=== PATIENT | male | born 1970 | race Caucasian/White ===

== ENCOUNTER 2020-09-04 07:07 | Inpatient (IN) | payer BC ==
[~2020-09-04] VITALS: Ht 167.6 cm; Wt 93.1 kg
[2020-09-04] MEDS ORDERED: ZITHROMAX Z PA250 MG PO (07:57)
[2020-09-04] MEDS ORDERED: 00186-0370-20 IH (07:58)
[2020-09-04 08:26] LABS: BASO # 0.1 (0.0-0.2); BASO % 0.6 % (0.0-2.0); EOS # 0.1 (0.0-0.7); EOS % 0.8 % (0-4.0); GRAN # 5.4 (1.4-6.5); HEMATOCRIT 45.9 % (42.0-52.0); HEMOGLOBIN 15.8 g/dl (13.5-18.0); LYMPH # 1.7 (1.2-3.4); LYMPH % 22.2 % (20.0-51.0); MEAN CELL VOLUME 87 fl (80.0-100.0); MEAN CORPUSCULAR HEMOGLOBIN 30 pg (27.0-31.0); MEAN CORPUSCULAR HGB CONC 34 g/dl (33.0-37.0); MEAN PLATELET VOLUME 8.7 fl (7.4-10.4); MONO # 0.5 (0.1-0.6); MONO % 6.1 % (1.7-9.3); PLATELET COUNT 331 K/mm3 (130-400); RED BLOOD COUNT 5.28 M/mm3 (4.20-5.60); REDCELL DISTRIBUTION WIDTH-CV 12.6 % (11.5-14.5)
[2020-09-04 08:28] LABS: ALANINE AMINOTRANSFERASE 216 U/L (4-49); ALBUMIN 4.4 gm/dL (3.5-5.0); ALKALINE PHOSPHATASE 60 U/L (50-136); ANION GAP 8 mmol/L (7-16); AST,SGOT 149 U/L (15-37); BILIRUBIN,TOTAL 0.8 mg/dL (0.0-1.0); BLOOD UREA NITROGEN 18 mg/dL (9-20); CALCIUM 9.1 mg/dL (8.4-10.2); CARBON DIOXIDE 22 mmol/L (22-30); CHLORIDE 105 mmol/L (98-107); GLUCOSE 124 mg/dL (74-106); POTASSIUM 3.9 mmol/L (3.4-5.0); SODIUM 135 mmol/L (137-145); TOTAL PROTEIN 6.7 gm/dL (6.4-8.2)
[2020-09-04 08:34] LABS: INR 1.2 (0.8-3.0)
[2020-09-04 08:37] LABS: PARTIAL THROMBOPLASTIN TIME 34.8 SECONDS (26.0-37.0)
[2020-09-04 08:39] LABS: TROPONIN-I < 0.012 ng/mL (0.000-0.035)
[2020-09-04 08:48] LABS: MAGNESIUM 1.9 mg/dL (1.6-2.3)
[2020-09-04 09:20] LABS: TSH w REFLEX 1.73 uIU/mL (0.465-4.680)
[2020-09-04 16:30] VITALS: BP 128/80; PULSE 84; TEMP 97.7
[2020-09-04 17:19] VITALS: BP 128/80; PULSE 84; TEMP 97.7
--- NOTE | 2020-09-04 17:39 | NUR ---
Patient transferred from ICU via wheelchair to room 315 this afternoon. Patient sitting up in the chair. Alert and oriented x4. Patient c/o chest discomfort and pressure. Breathing even and unlabored. VS and assessment completed and charted. Apical HR 84 and SPO2 98% on RA while at rest. No N/V or dizziness noted. Skin intact. 20G IV to left AC area has no s/s of complications. Patient ambulating to the bathroom independently. Sitting up and having dinner at this time. Call light within reach. No further need reported.
[2020-09-04 18:02] VITALS: BP 144/73; PULSE 115; TEMP 97.4
--- NOTE | 2020-09-04 18:04 | NUR ---
Patient c/o abdominal pain throughout the shift. PRN Dilaudid Ativan given Q 2-3 hrs per patient request. Alcohol detox protocol followed and charted assessment throughout the shift. Patient ate 100% of clear liquid dinner. Will given report to poultry inseminator RN.
--- NOTE | 2020-09-04 18:46 | NUR ---
Patient was getting very anxious and tearful about hospitalization. HR 115. PRN Ativan 1ml given per alcohol detox protocol. Will give report to night coordinator RN.
--- NOTE | 2020-09-04 19:10 | NUR ---
Received report from Sho. Patient is asleep. Will check on him again.
[2020-09-04 19:30] VITALS: BP 101/73; PULSE 94; TEMP 98
[2020-09-04 21:59] VITALS: BP 109/92; PULSE 93; TEMP 98.6
--- NOTE | 2020-09-04 22:25 | NUR ---
Prepared consent for the procedure. This nurse asked the patient if the procedure was explained to him and he said that they did. Explained further to patient what to expect post op. Patient signed the consent.
[2020-09-05] VITALS (20 sets, daily range): BP systolic 113–140; BP diastolic 75–101; PULSE 77–112; TEMP 97.5–98.7
--- NOTE | 2020-09-05 00:20 | NUR ---
Ativan 1mg given per dr order for detox score of 4 for HR and anxiety.
--- NOTE | 2020-09-05 04:51 | NUR ---
There is more than 5% variance in patient's weight. Verified to patient what is his usual weight and he said that he was usually 215lbs. He knew he gained weight due to retained fluids. His current weight now was 220lbs.
[2020-09-05 06:21] LABS: HEMATOCRIT 41.4 % (42.0-52.0); HEMOGLOBIN 13.9 g/dl (13.5-18.0); MEAN CELL VOLUME 89 fl (80.0-100.0); MEAN CORPUSCULAR HEMOGLOBIN 30 pg (27.0-31.0); MEAN CORPUSCULAR HGB CONC 34 g/dl (33.0-37.0); MEAN PLATELET VOLUME 8.8 fl (7.4-10.4); PLATELET COUNT 272 K/mm3 (130-400); RED BLOOD COUNT 4.67 M/mm3 (4.20-5.60); REDCELL DISTRIBUTION WIDTH-CV 12.6 % (11.5-14.5)
--- NOTE | 2020-09-05 06:33 | NUR ---
Patient becoming anxious this morning since his procedure is coming up. Ativan was given awhile ago. He denies pain. Maintained on NPO.
[2020-09-05 06:34] LABS: INR 1.3 (0.8-3.0); PROTHROMBIN TIME 14.2 SECONDS (9.7-12.8)
[2020-09-05 06:37] LABS: PARTIAL THROMBOPLASTIN TIME 33.4 SECONDS (26.0-37.0)
[2020-09-05 06:43] LABS: CALCIUM 8.2 mg/dL (8.4-10.2); CREATININE, serum 1.04 (0.66-1.25); POTASSIUM 3.4 mmol/L (3.4-5.0)
--- NOTE | 2020-09-05 07:38 | NUR ---
Radha RN notified of patient's increased HR.
--- NOTE | 2020-09-05 08:05 | NUR ---
SEE MERGE DOCUMENTATION FOR MEDICATION ADMINISTRATION TIMES AND INTRA/POST PROCEDURE SEDATION.
--- NOTE | 2020-09-05 08:10 | NUR ---
Sho RN notified of patient's telemety leads being off. Nurse states PT is at dialysis.
--- NOTE | 2020-09-05 11:55 | NUR ---
Patient resting in bed appears comfortable and not in acute distress upon enter. Patient alert and oriented. C/o some moderate pressure to his chest area. 1/2NS IV started to left forearm prior to procedure. Cardiac oil field laborer staff transferred patient via bed to Cardiac oil field laborer for procedure.
--- NOTE | 2020-09-05 12:45 | NUR ---
Initial visit; Patient thanked Diamond Picker for looking in on him, offering God's blessings and keeping him in Diamond Picker's prayers.
--- NOTE | 2020-09-05 12:56 | NUR ---
Patient transferred to room 315 at 0850 am after cardiac catheterization. Patient drowsy but arousable. Right wrist incision site clean/dry/intact with pressure band on. Report received from Cardiac laboratory tech staff
--- NOTE | 2020-09-05 15:38 | NUR ---
Patient resting in bed with no acute distress. No c/o pain or discomfort to right wrist cardiac cath site. Cardiac cath site clean/dry/intact. Attemped to remove 5cc air at 1100 am. Notived bleeding to the incision site. 5cc air pushed back to the pressure band. Removed 5cc air at 11:40 am. No bleeding noted. Removed another 5cc air at 12:30 pm. No bleeding noted. Removed remaining 2cc air at 1300. No bleeding noted. Covered cardiac cath site with band aid. Will continue to monitor post-procedure complications.
--- NOTE | 2020-09-05 15:43 | NUR ---
Xray Tech met with patient to discuss discharge planning. Patient is tearful during intake and stated that he is having a difficult time being in the hospital, away from home. Patient lives in [place] with is , Marbella (ph#[phone]) and their two children. Patient is employed at [employer] and sees Dr. Choi for primary care. Patient obtains medications from [facility] with no difficulties. Patient does not use DME and reports independence with ADLS. Patient does not have Advance Directives at this time. Patient plans on returning home upon discharge. ROQUE contacted patient's , Marbella to review discharge plan. Marbella states patient has been anxious and does not like being in the hospital. Marbella advised she has no concerns about patient returning home at this time.
--- NOTE | 2020-09-05 17:46 | NUR ---
Patient appears anxious at this time. PRN Ativan 1mg via IV given for alcohol detox level of 5 at 1730pm. Potassium protocol started per MD order and first dose given at 1730pm. Call light within reach. Patient denies further needs at this time.
--- NOTE | 2020-09-05 19:15 | NUR ---
Report received, assumed care for national expansion recruiter. Assessment complete. A&Ox3. Noted to be tachycardic with HR running 110s-120s. Tele showing tachycardia-A fib. HepXa 0.59-no change to current heparin rate of 18mls/hr. Denies pain/chest pain/shortness of breath/nausea. Plan of care discussed for this shift to [facility] meds/lab draws/NPO at midnight for cardioversion in AM/calling for questions/concerns. Verbalizes understanding. Call light in reach. Will monitor.
--- NOTE | 2020-09-05 19:35 | NUR ---
Call from telephone coin box collector reporting high rate alarm going off. Patient is up to bathroom at this time. Denies chest pain/shortness of breath. Does state he feels very anxious at this time. Detox protocol score of 5. Will administer Ativan per dr order and re-assess.
--- NOTE | 2020-09-05 19:50 | NUR ---
Ativan 1mg given for detox score of 5 due to HR, anxiety and tremor.
--- NOTE | 2020-09-05 21:10 | NUR ---
Notified by telesales supervisor of high rate alarm sounding. This nurse was in patients room at 210 to administer scheduled meds-had been asleep. Denies chest pain/shortness of breath. States he got up to drink his OJ/Potassium. Call light in reach. Will monitor.
--- NOTE | 2020-09-05 21:42 | NUR ---
Received call from telephone maintainer-high rate alarm sounding. Noted to be 140s on monitor. This nurse to room-patient in bathroom again. Denies chest pain/nausea/shortness of breath. Instructed to call when back to bed so vitals can be taken. Verbalizes understanding. Will monitor.
--- NOTE | 2020-09-05 22:00 | NUR ---
Back in bed at this time. Vital signs- BP122/85, HR 112 apically, TEMP 97.5 orally with O2 sat 96% on room air. Denies chest pain/shortness of breath/nausea. Scoring 3 on detox protocol. States anxiety is currently under control. Instructed to call with questions/concerns. Verbalizes understanding. Will continue to monitor.
[2020-09-06] VITALS (15 sets, daily range): BP systolic 101–121; BP diastolic 65–95; PULSE 37–118; TEMP 97.4–98.3
--- NOTE | 2020-09-06 00:59 | NUR ---
Lab notified of need for HepXa.
--- NOTE | 2020-09-06 05:51 | NUR ---
Rested well later this shift. Has been NPO since midnight for NICOLAS. Denied pain/nausea/shortness of breath. Remained in afib all thi shift. Heparin currently infusing at 17ml/hr-1700units/hour. Discussed needing consent form signed this AM for procedure-states he wants to speak with cardiology before signing to have a few questions answered due to foregetting exactly what would happen due to anxiety. Consent is on front of chart when ready to sign. Denies questions/concerns at this time. Call light in reach. Will monitor.
[2020-09-06 06:30] LABS: BASO # 0.1 (0.0-0.2); BASO % 0.7 % (0.0-2.0); EOS # 0.2 (0.0-0.7); EOS % 2.1 % (0-4.0); GRAN % 53.2 % (42.2-75.2); HEMATOCRIT 45.9 % (42.0-52.0); HEMOGLOBIN 15.7 g/dl (13.5-18.0); LYMPH # 2.7 (1.2-3.4); LYMPH % 35.4 % (20.0-51.0); MEAN CELL VOLUME 88 fl (80.0-100.0); MEAN CORPUSCULAR HEMOGLOBIN 30 pg (27.0-31.0); MEAN CORPUSCULAR HGB CONC 34 g/dl (33.0-37.0); MEAN PLATELET VOLUME 8.9 fl (7.4-10.4); MONO # 0.6 (0.1-0.6); MONO % 8.5 % (1.7-9.3); PLATELET COUNT 295 K/mm3 (130-400); RED BLOOD COUNT 5.23 M/mm3 (4.20-5.60); REDCELL DISTRIBUTION WIDTH-CV 12.6 % (11.5-14.5)
--- NOTE | 2020-09-06 06:30 | NUR ---
Call from local telephone operator stating HR setting off HR alarm. Noted to have HR of 120s. Is up to bathroom at this time to void. Denies pain/nausea/shortness of breath. Denies needs. Call light in reach. Will monitor.
[2020-09-06 06:34] LABS: INR 1.3 (0.8-3.0); PROTHROMBIN TIME 14.5 SECONDS (9.7-12.8)
[2020-09-06 06:43] LABS: ALBUMIN 3.9 gm/dL (3.5-5.0); BILIRUBIN UNCONJUGATED 0.7 mg/dL (0.0-1.1); BILIRUBIN,TOTAL 0.7 mg/dL (0.0-1.0); CALCIUM 8.3 mg/dL (8.4-10.2); CREATININE, serum 0.83 (0.66-1.25); POTASSIUM 3.6 mmol/L (3.4-5.0); TOTAL PROTEIN 6.4 gm/dL (6.4-8.2)
--- NOTE | 2020-09-06 07:14 | NUR ---
Patient up to bathroom, voids and has small BM, returns to bed. Alert and oriented x4. Denies pain. Is aware of procedure today, still has questions that he wants to talk to the provider about before signing consent. Heart rate irregular and gets tachy with increased activity. Heparin drip at 17mL/hr. Patient denies additional needs or concerns at this time.
--- NOTE | 2020-09-06 08:35 | NUR ---
HepXa elevated. Infusion stopped at this time, will need to restart in one hour. Rate will decrease to 15mL/hr, pump set at this time, confirmed by MELLO Witt. Order for lab redraw at 1430 today. Patient updated. Patient lying in bed. Denies needs or concerns at this time.
--- NOTE | 2020-09-06 09:11 | NUR ---
Patient to mobile home laborer at this time via bed. MELLO Reed, updated on when to restart Heparin drip.
--- NOTE | 2020-09-06 10:18 | NUR ---
Patient back to room via bed from procedure. Alert and oriented x4, groggy. Patient expresses frustration with the failed cardioversion. Dr. Shaw in to talk with the patient about plan.
--- NOTE | 2020-09-06 10:40 | NUR ---
Initial amiodarone dose given. RT notified so they can perform EKG in four hours.
--- NOTE | 2020-09-06 12:27 | NUR ---
Patient starting to get increased anxiety. Will administer Ativan as prescribed. Reassurance provided to the patient. Patient is frustrated with having to be in hospital longer. Discuss this further with the patient.
--- NOTE | 2020-09-06 13:50 | NUR ---
Sitting on edge of bed eating lunch. Heparin drip discontinued at this time as ordered. Initial dose of Eliquis given at this time. Patient joking around and laughing, feeling a little better at this time. Denies additional needs.
--- NOTE | 2020-09-06 13:58 | NUR ---
Receive call from tele that the patient's heart rate has been staying steady around 130's, has jumped up to 170's a couple times. Go in to check on patient. Patient sitting on edge of bed eating lunch still. Patient says that he feels fine. Denies feeling short of breath or any chest pain. Says that he feels that fine. MELLO Bryant with Dr. English, updated. No new orders received at this time.
--- NOTE | 2020-09-06 14:03 | NUR ---
MELLO Bryant, calls back and she and Dr. Tameka alva placed orders in system. Will administer Toprol as prescribed at this time.
--- NOTE | 2020-09-06 14:41 | NUR ---
Mutual Fund Manager spoke with patient's , Marbella who asked if she could bring in a laptop for patient to watch Netflix on. SW advised that belongings could be brought to either the ED or Patient Entrance. Marbella did not have any further questions or concerns at this time.
--- NOTE | 2020-09-06 14:55 | NUR ---
Per tele, heart rate 90's-110's.
--- NOTE | 2020-09-06 17:09 | NUR ---
Patient lying in bed with eyes open. Says taht he is feeling okay at this time. Patient feeling better about staying and realizes importance of situation. Explains that he know that there are some changes in his life that he needs to make to help the situation in the long run. Patient's dropped off some stuff at patient admission entrance for the patient. This nurse obtains bag from patient admissions and provides to the patient. Patient denies any additional needs at this time.
--- NOTE | 2020-09-06 21:15 | NUR ---
Resting in bed. Assessment complete. Lungs clear. Heart sounds normal. Bowels active x4. Pulses present throughout. No edema noted. INT left AC flushed without complications. Patient scoring 2 on detox scale. Ativan ordered starting at 4. Patient report anxiety and ready to leave facility. Spoke with Myrna TURNER. One time dose for Ativan 0.5mg ordered and will provide to patient. Denied pain at this time. Call light in reach.
[2020-09-07] VITALS (8 sets, daily range): BP systolic 97–139; BP diastolic 71–96; PULSE 60–96; TEMP 97.3–98.2
--- NOTE | 2020-09-07 03:56 | NUR ---
Resting in bed. Denies needs. Call light in reach.
--- NOTE | 2020-09-07 06:31 | NUR ---
Patient required x1 dose of ativan throughout night. Otherwise uneventful night. Resting in bed this AM. Call light in reach.
[2020-09-07 06:49] LABS: BILIRUBIN,TOTAL 0.8 mg/dL (0.0-1.0); CREATININE, serum 1.07 (0.66-1.25); TOTAL PROTEIN 6.7 gm/dL (6.4-8.2)
--- NOTE | 2020-09-07 07:17 | NUR ---
Report given to MELLO Macias
--- NOTE | 2020-09-07 08:59 | NUR ---
Pt awake and alert upon entry, sitting on side of bed, talkative, shift assessments complete, left Pt sitting with call light in reach.
--- NOTE | 2020-09-07 10:48 | NUR ---
Tierce Filler attended clinical rounds with the team. Patient states he is still feeling down about being in the hospital. Patient states once he can get out of the hospital, he will feel much better. Patient encouraged to walk in the hallways. SW will continue to follow.
--- NOTE | 2020-09-07 17:48 | NUR ---
Pt resting in the room during the day, has not had C/O pain today. Pt has indicated that he is anxious at times during the day, and has expressed a desire to return home, medications were given for relief. no other issues noted. VS have remained stable.
--- NOTE | 2020-09-07 20:45 | NUR ---
Resting in bed. Assessment complete. Lungs clear. Heart sounds normal. bowels active x4. Pulses present throughout. No edema noted. INT left AC without complications. Denies pain. Denies needs at this time. Call light in reach.
--- NOTE | 2020-09-08 01:00 | NUR ---
Resting in bed. Denies needs. Call light in reach.
[2020-09-08 02:02] VITALS: BP 108/74; PULSE 74; TEMP 97.8
[2020-09-08 04:17] VITALS: BP 103/67; PULSE 63; TEMP 98.3
--- NOTE | 2020-09-08 06:26 | NUR ---
Patient had uneventful night. Resting in bed this AM. Call light in reach.
[2020-09-08 06:32] VITALS: BP 93/62; PULSE 60; TEMP 97.4
--- NOTE | 2020-09-08 06:55 | NUR ---
Report given to MELLO Macias
--- NOTE | 2020-09-08 09:15 | NUR ---
Pt awake and alert upon entry, walking in room, no C/O pain at this time, shift assessments complete, left Pt call light in reach, bed in lowest position.
[2020-09-08 10:18] VITALS: BP 99/82; PULSE 58; TEMP 97.6
--- NOTE | 2020-09-08 10:44 | NUR ---
Verbal order to change CIWA from Q2H to Q4H from Shamika Dale.
[2020-09-08 19:28] VITALS: BP 106/64; PULSE 86; TEMP 97.5
--- NOTE | 2020-09-08 19:45 | NUR ---
Resting in bed. Assessment complete and within normal limits. INT left AC flushed without complications. Denies pain. Reporting anxiety and "home sick." Requested PRN xanax. Provided to patient. Denies other needs at this time. Call light in reach.
[2020-09-08 22:24] VITALS: BP 120/76; PULSE 80; TEMP 97.4
[2020-09-09] VITALS (8 sets, daily range): BP systolic 100–114; BP diastolic 50–93; PULSE 55–80; TEMP 97.4–98.3
--- NOTE | 2020-09-09 00:07 | NUR ---
Resting in bed. Denies needs. Call light in reach.
--- NOTE | 2020-09-09 04:15 | NUR ---
Resting in bed. Denies needs. Call light in reach.
--- NOTE | 2020-09-09 05:08 | NUR ---
Patient received x1 dose of xanax for anxiety. Otherwise uneventful night. Resting in bed this AM. Call light in reach.
[2020-09-09 06:17] LABS: ALBUMIN 3.8 gm/dL (3.5-5.0); BILIRUBIN,TOTAL 0.7 mg/dL (0.0-1.0); CALCIUM 8.9 mg/dL (8.4-10.2); CREATININE, serum 1.11 (0.66-1.25); MAGNESIUM 2.1 mg/dL (1.6-2.3); TOTAL PROTEIN 6.6 gm/dL (6.4-8.2)
--- NOTE | 2020-09-09 06:39 | NUR ---
Report given to MELLO Macias
--- NOTE | 2020-09-09 10:21 | NUR ---
Pt awake and alert upon entry this morning, sitting at windowside bench, talkative, no C/O pain at this time. Shift assessments complete, left Pt call light in reach, bed in lowest position.
--- NOTE | 2020-09-09 18:21 | NUR ---
Pt resting in the room, has some C/O anxiety at times during the day, no other issues noted. VS have remained stable.
--- NOTE | 2020-09-09 20:00 | NUR ---
Report recieved, assuemd care for shift production supervisor. Assessment complete. VS stable-hypotensive. Denies chest pain/shortness of breath/nausea. States she is ready for his cardioversion tomorrow so he can go home. Plan of care discussed for this shift to include HS meds/Fluid restriction/NPO at midnight. Verbalizes understanding/denies questions/concerns. Call light in reach. Will monitor.
[2020-09-10] VITALS (8 sets, daily range): BP systolic 98–110; BP diastolic 64–77; PULSE 72–80; TEMP 97.4–98
--- NOTE | 2020-09-10 05:56 | NUR ---
Rested well this shift with no c/o. Remained NPO since midnight. Not scoring on ETOH withdrawl. Recieved one dose of xanax at HS for anxiousness related to possible cardioversion today. Denies pain/nausea/shortness of breath. VS stable. Call light in reach. WIll monitor.
--- NOTE | 2020-09-10 07:00 | NUR ---
Report with MELLO Lane. Pt sitting up in bed, talking on phone, denies needs. Call light in reach.
[2020-09-10 07:17] LABS: BILIRUBIN,TOTAL 0.7 mg/dL (0.0-1.0); CALCIUM 8.9 mg/dL (8.4-10.2); CREATININE, serum 1.11 (0.66-1.25); POTASSIUM 4.1 mmol/L (3.4-5.0); TOTAL PROTEIN 6.6 gm/dL (6.4-8.2)
--- NOTE | 2020-09-10 09:00 | NUR ---
Assessment complete. Pt ambulating around room with steady gait, A&O x 4. Physical assessment unremarkable. Pt denies pain at this time. Saline lock IV to left AC without s/s of complications. POC for procedure reviewed with pt. No further needs reported. Call light in reach.
--- NOTE | 2020-09-10 09:55 | NUR ---
Pt to flue dust laborer for procedure via bed.
--- NOTE | 2020-09-10 10:50 | NUR ---
Pt back to room from slab conditioner supervisor following procedure via bed, A&O x 4. Pt denies pain at this time. VSS. No further needs reported. Call light in reach.
[2020-09-10] MEDS ORDERED: ELIQUIS 5MG PO (12:50)
[2020-09-10] MEDS ORDERED: PACERONE400 MG PO (12:51)
[2020-09-10] MEDS ORDERED: ALDACTONE 25MG25 M1 PO (12:52)
[2020-09-10] MEDS ORDERED: TOPROL XL 25MG25 MG PO (12:52)
[2020-09-10] MEDS ORDERED: ENTRESTO 24 MG1 EACH PO (12:52)
[2020-09-10] MEDS ORDERED: LASIX 40MG TABL40 MG PO (12:52)
--- NOTE | 2020-09-10 15:44 | NUR ---
Amiodarone script called to [facility] for 2 days worth d/t Conchita needing to order more medication to fulfill prescription. 2 tabs sent home with pt to cover dose for this evening.
== END 2020-09-10 15:46 | disposition home or self-care (01) | DRG 286 ==
LOC: COL.ER 07:07 → MEDICAL 11:17
PROVIDERS: Family Medicine; Hospitalist; Physician Assistant; ADMIT Internal Medicine
PROC: 4A023N7 Measurement of Cardiac Sampling and Pressure, Left Heart, Percutaneous Approach (ICD-10-PCS; principal; 2020-09-05)
PROC: B2111ZZ Fluoroscopy of Multiple Coronary Arteries using Low Osmolar Contrast (ICD-10-PCS; 2020-09-05)
PROC: 5A2204Z Restoration of Cardiac Rhythm, Single (ICD-10-PCS; 2020-09-06)
DX: I48.91 Unspecified atrial fibrillation (principal); I50.23 Acute on chronic systolic (congestive) heart failure; E87.1 Hypo-osmolality and hyponatremia; I11.0 Hypertensive heart disease with heart failure; F17.210 Nicotine dependence, cigarettes, uncomplicated; R73.9 Hyperglycemia, unspecified; F41.9 Anxiety disorder, unspecified; I42.8 Other cardiomyopathies; B94.8 Sequelae of other specified infectious and parasitic diseases; G47.00 Insomnia, unspecified; Z20.828 Contact with and (suspected) exposure to other viral communicable diseases; Z72.89 Other problems related to lifestyle
CPT/HCPCS: 99223-AI; 99232-AI; 99239; C1769; C8924; J1644; J1940; J2060; J2250; J2704; J3010; J7030; Q9957; Q9967